=== PATIENT | male | born 1935 | race Caucasian/White ===

== ENCOUNTER 2019-01-27 11:50 | Emergency (ER) | payer OTHER ==
--- NOTE | 2019-01-27 12:08 | PDOC ---
History of Present Illness - General Chief Complaint: Injury Stated Complaint: FELL Time Seen by Provider: 01/27/19 12:08 History Source: Patient Exam Limitations: No Limitations - History of Present Illness Initial Comments: 01/27/19 13:13 84-year-old male with history of hyperlipidemia not on medications presenting with fall from porch. He was carrying heavy groceries up his porch tripped and fell backwards about 5 concrete steps. Landed on his back and head. No LOC, seizure, altered mental status. Has abrasions and swelling to his right forehead and crown of the head, bleeding is controlled. Unclear last tetanus shot. He also complains of right shoulder and forearm pain as well as lower lumbar back/tailbone pain. Able to ambulate without difficulty. Patient denies any chest pain, shortness of breath, headache, dizziness, syncope, prodromal symptoms including chest pain/shortness of breath/palpitations/ dizziness/neurologic changes. No abdominal pain, nausea vomiting, diarrhea, urinary incontinence or urinary symptoms, hematuria, leg pain/extremity pain or swelling. No anticoagulant or aspirin use. Review of systems Constitutional: no fevers or chills. No weakness HEENT: no headache or dizziness. No congestion. No visual/hearing disturbances. CVS: no cp or syncope. Resp: no sob. No cough. Gastrointestinal: no abdominal pain, nausea or vomiting. Genitourinary: no urinary sx, hematuria. MUSCULOSKELETAL: No joint pain and swelling. No neck, +back pain. +arm/shoulder pain and swelling. SKIN: +wound, abrasion, laceration. Hematologic: no easy bruising/bleeding. NEUROLOGIC: No headache, dizziness, LOC or altered mental status. No weakness, numbness or tingling. Psych: no anxiety or depression Allergic/Immunologic: no allergies All other systems reviewed and negative, or as documented in HPI. physical exam GCS 15 - NAD, well appearing HEENT: +right forehead superficial abrasion and overlying swelling, crown with moderately sized superficial abrasion. PERRL, EOMI. Airway intact. No battles sign or raccoon eyes. No e/o ocular involvement.. Dentition intact. No e/o septal hematoma, nasal bridge stable. Neck: neck supple, no midline C spine tenderness or deformity, ROM intact. No anterior mass or crepitus, trachea midline. Resp: Lungs clear bilaterally Chest: no clavicle or chest wall tenderness or crepitus CVS: RRR, 2+ pulses throughout. Abdomen: Abdomen soft, nontender, nondistended. Back: Back nontender, no midline spinal tenderness along cervical/thoracic/ lumbar spine, FROM, no stepoffs. MSK: Pelvis stable, Extremities symmetric, no focal areas of tenderness or deformities, proximal and distally; no pain on axial loading. FROM in all extrem. Neuro: Alert, oriented appropriately. CN II-XII grossly symmetric and intact. no focal neuro deficits. Sensation and strength intact throughout. Gait normal/ stable. Skin: intact, normal color and well perfused. +right anterior shoulder abrasion , right prox forearm swelling/hematoma/tenderness. 01/27/19 13:25 Past History - Past Medical History Allergies/Adverse Reactions: Allergies Allergy/AdvReac Type Severity Reaction Status Date / Time No Known Allergies Allergy Verified 01/27/19 12:05 Home Medications: Ambulatory Orders Lidocaine 5% Patch [Lidoderm Patch -] 1 patch TP DAILY #7 patch 01/27/19 Medical Decision Making - Medical Decision Making 01/27/19 13:25 Vital Signs Temp Pulse Resp BP Pulse Ox 98.1 F 72 16 160/90 100 01/27/19 12:05 01/27/19 12:05 01/27/19 12:05 01/27/19 12:05 01/27/19 12:05 VS reviewed, mildly hypertensive, otherwise wnl Trauma ddx: ICH, SDH/ EDH, C spine injury/strain, extremity sprain/fracture, pelvis fracture. MSK contusion, msk spasms. Rib fractures. Clinically doubt Intra abdominal and thoracic injuries/bleed Trauma Neg: No evidence of skull fracture, intracranial bleed, dental trauma, cervical, thoracic, or vertebral fracture or subluxation, no suspicion of thoracic, abdominal, pelvic or extremity injury by exam/secondary survey. no chest or abdominal tenderness. back nontender. FROM in all extrem, neuro intact. Xray imaging with degenerative changes, no fx/subluxation. cxr clear, no rib fx/effusion identified. ED course: given lido patch, tylenol boostrix updated wounds cleaned, topical steri strips for the superficial abrasion/laceration fall prevention and safety DC stable condition, PCP followup, return precautions monitor for worsening neuro sx with head injury, such as AMS, sz, headache, dizzy, neuro changes, vomiting. otherwise supportive care, analgesia, rest and wound care for the forehead wounds. 01/27/19 13:26 01/27/19 13:28 Discharge - Discharge Information Problems reviewed: Yes Clinical Impression/Diagnosis: Scalp abrasion Qualifiers: Encounter type: initial encounter Qualified Code(s): S00.01XA - Abrasion of scalp, initial encounter Traumatic hematoma of scalp Qualifiers: Encounter type: initial encounter Qualified Code(s): S00.03XA - Contusion of scalp, initial encounter Contusion, arm, upper Qualifiers: Encounter type: initial encounter Laterality: right Qualified Code(s): S40.021A - Contusion of right upper arm, initial encounter Low back sprain Qualifiers: Encounter type: initial encounter Qualified Code(s): S33.5XXA - Sprain of ligaments of lumbar spine, initial encounter Condition: Good Disposition: HOME - Admission No - Additional Discharge Information Prescriptions: Lidocaine 5% Patch [Lidoderm Patch -] 1 patch TP DAILY #7 patch - Follow up/Referral Referrals: [facility] [Provider Group] [facility] [Provider Group] - Patient Discharge Instructions Patient Printed Discharge Instructions: How to Prevent Falls, DI for Abrasion, DI for Contusion, DI for Closed Head Injury Additional Instructions: 1) Please follow-up with your primary care doctor in the next 1-2 days. Please call tomorrow for for any urgent issues. 2) You were given a copy of the tests performed today. Please bring the results with you and review them with your primary care doctor. Your laboratory / imaging results were normal, including Xray and CT head and cervical spine. your tetanus was updated today. 3) If you have any worsening of symptoms or any other concerns please return to the ED immediately. Return if worsening symptoms including fevers, headache, vomiting, visual or hearing disturbances, abdominal pain, chest pain, shortness of breath, syncope, dehydration, inability to take things by mouth/vomiting, altered mental status, or worsening concerning symptoms. if worsening symptoms of vomiting, headaches, dizziness, syncope, neuro changes , Altered mental status, seizure return sooner for evaluation you most likely have musculoskeletal strain/contusion of your upper arm and lower back you also have abrasions/wounds to your scalp - proper cleaning 2-3x per day to prevent infection monitor for infection, such as redness, oozing, discoloration, swelliing, pain, malodor avoid heavy lifting or strenuous activity to minimize further injury topical lidoderm patch to the area affected, 12 hours on and 12 hours off.. May take ibuprofen 400-600mg and/or tylenol 650 to 975 mg every 6 hours as needed for mild to moderate pain, available over the counter. This does not require narcotics, as it will precipitate injuries and falls. continue with range of motion exercises, as this will facilitate the healing process; avoid being bed bound and immobile. RICE rest ice elevate the affected extremity Rest, Ice (20 minutes at a time, 3 times a day), Compression (BRANDY wrap or splint ), Elevation (above the heart). Follow up with your primary care physician in 1 week if symptoms persist, or with orthopedics if needed. Follow up with primary doctor/specialist services provided as well. orthopedics referrals given. This should heal over the next 3-5 days. FALL PREVENTION AT HOME WHAT YOU NEED TO KNOW There are many different factors that can increase your risk of falls. Falls can happen any time, but the majority of them occur in the home. Fall prevention includes ways to make your home and other areas safer. It also includes ways you can move more carefully to prevent a fall. Health conditions that cause changes in your blood pressure, vision, or muscle strength and coordination may increase your risk for falls. Medicines, including anesthesia, may increase your risk for falls if they make you dizzy, weak, or sleepy. FALL PREVENTION TIPS Stand or sit up slowly. This may help you keep your balance and prevent falls. Do not walk and talk at the same time. Concentrate on the task of walking and continue the conversation after you've reached a safe place. Wear shoes that fit well and have soles that sole leveling machine operator. Wear shoes both inside and outside. Use slippers with good sole leveling machine operator. Avoid shoes with high heels. Use assistive devices as directed. Your healthcare provider may suggest that you use a cane or walker to help you keep you balance. Be sure you have adequate lighting throughout your house. Keep paths clear. Remove books, shoes and other objects from walkways and stairs. Keep cords for telephones and lamps out of the way so you dont need to walk over them. Remove small rugs or secure them with double-sided tape. This will prevent you from tripping. Use a nightlight when getting out of bed at night. Stay active to maintain overall strength and endurance. Know your limitations. If there is a task you can not complete with ease, do not risk a fall by trying to complete it. Call 911 or have someone else call if: You have fallen and are unconscious You have fallen and cannot move part of your body Contact your healthcare provider if: You have fallen and have pain or a headache You have questions or concerns about your condition or care. ------ 1) Juan un seguimiento con yates mdico de atencin primaria en los prximos 1-2 dudley. Llame maana para cualquier problema urgente. 2) Le dieron julianne copia de las pruebas realizadas hoy. Traiga los resultados con usted y revselos con yates mdico de atencin primaria. Los resultados de yates laboratorio / imagen fueron normales, incluyendo giuseppe X y TC de awa y columna cervical. Yates ttanos se actualiz hoy. 3) Si tiene algn empeoramiento de los sntomas o cualquier otra inquietud, regrese al servicio de urgencias de inmediato. Regrese si empeora los sntomas, lemuel fiebre, dolor de awa, vmitos, trastornos visuales o auditivos, dolor abdominal, dolor en el pecho, falta de aliento, sncope, deshidratacin, incapacidad para juan a cosas por la boca / vmitos, estado mental alterado o empeoramiento de los sntomas. si empeora los sntomas de vmitos, ivette de awa, mareos, sncope, cambios neurolgicos, estado mental alterado, convulsiones regresan antes para la evaluacin lo ms probable es que tenga tensin / contusin musculoesqueltica en la parte superior del brazo y la espgentrya ajith mitchell tiene abrasiones / heridas en el cuero cabelludo: limpieza adecuada 2-3 veces por da para prevenir infecciones vigilar la infeccin, lemuel enrojecimiento, supuracin, decoloracin, hinchazn, dolor, mal olor Evite levantar objetos pesados ??o realizar actividades extenuantes para minimizar ms lesiones. parche tpico de lidoderm en el nolan afectada, 12 horas encendido y 12 horas apagado. Puede juan a ibuprofeno 400-600mg y / o tylenol 650 a 975 mg cada 6 horas segn sea necesario para el dolor leve a moderado, disponible sin receta mdica. [place] no requiere narcticos, ya que precipitar lesiones y cadas. contine con los ejercicios de rango de movimiento, ya que esto facilitar el proceso de curacin; evite estar en cama e inmvil. ARROZ descanso hielo elevar la extremidad afectada [place], hielo (20 minutos a la vez, 3 veces al da), compresin (envoltura o frula BRANDY), elevacin (por encima del corazn). Juan un seguimiento con yates mdico de atencin primaria en 1 semana si los sntomas persisten, o con ortopedia si es necesario. Juan un seguimiento con los servicios de mdico primario / especialista que se proporcionan stephen. referencias de ortopedia dadas. [place] debera sanar en los prximos 3-5 dudley. PREVENCIN DE CADAS EN CASA LO QUE NECESITAS SABER Hay muchos factores diferentes que pueden aumentar yates riesgo de cadas. Las cadas pueden ocurrir en cualquier momento, hillary la mayora de ellas ocurren en el hogar. La prevencin de cadas incluye formas de hacer que yates hogar y otras reas serenity ms seguras. Tambin incluye formas en que puede moverse con ms cuidado para evitar julianne cada. Las condiciones de krzysztof que causan cambios en la presin arterial, la visin o la fuerza muscular y la coordinacin pueden aumentar yates riesgo de cadas. Los medicamentos, incluida la anestesia, pueden aumentar yates riesgo de cadas si le producen mareos, debilidad o sueo. - Post Discharge Activity
[2019-01-27] MEDS ORDERED: LIDOCAINE 5% TOPICAL PATCH TP ONE (12:11)
[2019-01-27] MEDS ORDERED: ACETAMINOPHEN 325 MG TABLET (FP) PO ONE (12:11)
[2019-01-27 12:31] VITALS: BP 160/90; PULSE 72; TEMP 98.1; BMI 24.7
[2019-01-27] MEDS ORDERED: LIDOCAINE 5% TOPICAL PATCH ONE (12:31)
[2019-01-27] MEDS ORDERED: ACETAMINOPHEN 325 MG TABLET (FP) ONE (12:31)
[2019-01-27] MEDS ORDERED: DIPHTH,PERTUSS(ACELL),TET 0.5 ML DISP.SYRIN IM ONE ×2 (13:26→13:38)
== END 2019-01-27 13:51 | disposition home or self-care (01) ==
LOC: FER 11:50
PROC: 3E0234Z Introduction of Serum, Toxoid and Vaccine into Muscle, Percutaneous Approach (ICD-10-PCS; principal; 2019-01-27)
DX: S00.01XA Abrasion of scalp, initial encounter (principal); S33.5XXA Sprain of ligaments of lumbar spine, initial encounter; S00.03XA Contusion of scalp, initial encounter; S40.021A Contusion of right upper arm, initial encounter; W10.9XXA Fall (on) (from) unspecified stairs and steps, initial encounter; Y93.89 Activity, other specified; Y92.009 Unspecified place in unspecified non-institutional (private) residence as the place of occurrence of the external cause; E78.5 Hyperlipidemia, unspecified
CPT/HCPCS: 70450-TC; 71046-TC-FY; 72100-TC-FY; 72125-TC; 73030-TC-RT-FY; 73090-TC-RT-FY; 90471; 90715; 99282-25

== ENCOUNTER 2020-12-06 23:22 | Emergency (ER) | payer OTHER ==
[2020-12-06 23:26] VITALS: BP 153/95; PULSE 72; TEMP 97.8; BMI 26.9
[2020-12-07 01:46] LABS: BASO % 0.5 % (0-2.0); EOS % 6.2 % (0-4.5); HEMATOCRIT 41.3 % (35.4-49); HEMOGLOBIN 14.1 GM/dL (11.7-16.9); MCH 28.9 pg (25.7-33.7); MEAN CELL VOLUME 84.9 fl (80-96); MEAN PLT VOLUME 9.7 fl (7.5-11.1); NEUT % 50.3 % (42.8-82.8); PLATELET COUNT 181 10^3/uL (134-434); RBC 4.86 M/mm3 (4.00-5.60); RDW 13.3 % (11.9-15.9); WHITE BLOOD COUNT 7.4 K/mm3 (4.0-10.0)
[2020-12-07 02:01] LABS: URINE APPEARANCE TURBID; URINE BILIRUBIN NEGATIVE (NEGATIVE); URINE COLOR YELLOW; URINE GLUCOSE (UA) 3+ (NEGATIVE); URINE KETONE TRACE (NEGATIVE); URINE LEUK ESTERASE NEGATIVE (NEGATIVE); URINE NITRITE NEGATIVE (NEGATIVE); URINE PROTEIN NEGATIVE (NEGATIVE)
[2020-12-07 02:13] LABS: CHLORIDE 102 mmol/L (98-107); SODIUM 136 mmol/L (136-145)
[2020-12-07 02:15] LABS: CALCIUM 8.9 mg/dL (8.5-10.1)
[2020-12-07 02:16] LABS: ALBUMIN 3.7 g/dl (3.4-5.0); ANION GAP 6 MMOL/L (8-16); BLOOD UREA NITROGEN 18.2 mg/dL (7-18); CO2 28 mmol/L (21-32); GLUCOSE,RANDOM 278 mg/dL (74-106)
[2020-12-07 02:19] LABS: SGOT/AST 14 U/L (15-37); SGPT/ALT 23 U/L (13-61)
[2020-12-07 02:21] LABS: BILIRUBIN,TOTAL 0.4 mg/dL (0.2-1); TOT PROT 7.3 g/dl (6.4-8.2)
[2020-12-07 02:22] LABS: ALK PHOS 86 U/L (45-117)
== END 2020-12-07 03:49 | disposition home or self-care (01) ==
LOC: FER 23:22
DX: R42 Dizziness and giddiness (principal); R73.09 Other abnormal glucose
CPT/HCPCS: 36415; 70450-TC; 80053; 81003; 82550; 84484; 85025; 87086; 93005; 99285-25; C9803; U0003; U0005

== ENCOUNTER 2023-04-27 10:33 | Emergency (ER) | payer OTHER ==
[2023-04-27 10:51] VITALS: BP 169/93; PULSE 84; RESP 16; TEMP 98.4; BMI 23.1
[2023-04-27] MEDS ORDERED: CARBAMIDE PEROXIDE 6.5% OTIC 15 ML BOTTLE AD ONE (11:04)
[2023-04-27] MEDS ORDERED: CARBAMIDE PEROXIDE 6.5% OTIC 15 ML BOTTLE ONE (11:10)
== END 2023-04-27 12:00 | disposition home or self-care (01) ==
LOC: SUPCPDRO 10:33 → FER 10:33
DX: H91.91 Unspecified hearing loss, right ear (principal)
CPT/HCPCS: 99282-25